=== PATIENT | female | born 1945 | race Caucasian/White ===

== ENCOUNTER 2022-10-01 05:38 | Day surgery (SDC) | payer MEDICARE, OTHER ==
[2022-09-27 10:18] LABS: BASOPHILS % (AUTO) 0.7 % (0-1); EOSINOPHILS # (AUTO) 0.8 X10'3 (0-0.9); EOSINOPHILS % (AUTO) 10.5 % (0-6); LYMPHOCYTES # (AUTO) 1.8 X10'3 (1.1-4.8); LYMPHOCYTES % (AUTO) 25.2 % (21-51); MEAN CORPUSCULAR HEMOGLOBIN 27.3 PG (27.0-31.0); MEAN CORPUSCULAR HGB CONC 32.6 g/dL (33.0-36.5); MEAN CORPUSCULAR VOLUME 83.7 FL (78-98); MEAN PLATELET VOLUME 7.1 FL (7.4-10.4); MONOCYTES # (AUTO) 0.6 X10'3 (0-0.9); MONOCYTES % (AUTO) 8.9 % (2-12); NEUTROPHILS # (AUTO) 3.9 X10'3 (1.8-7.7); NEUTROPHILS % (AUTO) 54.7 % (42-75); PRE OP HEMATOCRIT 35.7 % (35.0-45.0); PRE OP HEMOGLOBIN 11.6 g/dL (12.0-16.0); PRE OP PLATELET COUNT 277 X10'3 (140-440); RED BLOOD COUNT 4.26 X10'6 (4.20-5.60); RED CELL DISTRIBUTION WIDTH 16.2 % (11.5-14.5)
[2022-09-27 10:38] LABS: ALBUMIN 3.7 G/DL (3.4-5.0); ALKALINE PHOSPHATASE 72 IU/L (46-116); BLOOD UREA NITROGEN 36 MG/DL (7-18); BUN/CREATININE RATIO 27.9 (6.6-38.0); CALCIUM 9.5 MG/DL (8.5-10.1); CHLORIDE 108 MMOL/L (99-107); CREATININE 1.29 MG/DL (0.40-0.90); PRE OP ALT 33 U/L (30-65); PRE OP ANION GAP 9 (8-16); PRE OP AST 26 U/L (10-37); PRE OP BILIRUB, TOTAL 0.5 MG/DL (0.0-1.0); PRE OP GLUCOSE 148 MG/DL (70-104); PRE OP POTASSIUM 3.8 MMOL/L (3.4-5.1); PRE OP SODIUM 140 MMOL/L (135-145); TOTAL CARBON DIOXIDE 22.9 MMOL/L (24-32); TOTAL PROTEIN 7.5 G/DL (6.4-8.2); eGFR 40 ML/MIN
[2022-10-01] VITALS (9 sets, daily range): BP systolic 144–162; BP diastolic 57–99
[~2022-10-01] VITALS: Ht 165.1 cm; Wt 77.1 kg
[~2022-10-01 05:38] MED LIST: AMA1T PO; ASPI-1265 PO; CHOL20003; CYAN-51 PO; HYDR12.55 PO; INSU100I31 SQ; METF1000 PO; MULT-620 PO; ROSU10TA28; TELM40TA8 PO; ceFAZolin inj. 2,000 MG in dextrose 5%-water 100 ML IV ONE; ceFAZolin inj. 3,000 MG in normal saline 100ml IV soln 100 ML IV ONE; famotidine 20mg tablet PO ONE; ringers solution, lacted 1,000 ML IV SCH
[2022-10-01] MEDS ORDERED: proCHLORperazine 10 MG/2 ml inj IV PRN ×2 (07:20→08:10)
[2022-10-01] MEDS ORDERED: morphine 4 MG/ML inj SYRINge IV PRN ×2 (07:20→08:10)
[2022-10-01] MEDS ORDERED: hydrALAZINE 20mg/ml inj. IV PRN ×2 (07:20→08:10)
[2022-10-01] MEDS ORDERED: meperidine/PF 25mg/ml syringe IV PRN ×6 (07:20→08:10)
[2022-10-01] MEDS ORDERED: ringers solution, lacted 1,000 ML IV SCH ×2 (07:20→08:10)
[2022-10-01] MEDS ORDERED: acetaminophen 1,000mg/100ml IV 100 ML IV PRN ×2 (07:20→08:10)
[2022-10-01] MEDS ORDERED: labetalol 20mg/4ml (5mg/ml) syringe IV PRN ×2 (07:20→08:10)
[2022-10-01] MEDS ORDERED: ondansetron/PF 4mg/2ml inj IV PRN ×2 (07:20→08:10)
[2022-10-01] MEDS ORDERED: morphine 2 MG/ML inj. syringe IV PRN ×2 (07:20→08:10)
[2022-10-01] MEDS ORDERED: BUPIVAcaine/PF 5 mg/ml 10ml ONE (07:52)
[2022-10-01] MEDS ORDERED: fentaNYL/PF 50MCG/1 ML 2ML syringe ONE (07:56)
[2022-10-01] MEDS ORDERED: midazolam 1 mg/ML 2ml injection ONE (08:05)
[2022-10-01] MEDS ORDERED: propofol inj 20 ML IV ONE (08:26)
[2022-10-01] MEDS ORDERED: LIDOcaine 0.5% (5mg/ml) 50ml vial ONE (08:26)
--- NOTE | 2022-10-01 08:42 | NUR ---
Received from OR via [facility] IN STABLE CONDITION , accompanied by Anesthesiologist and TRACK SUPERINTENDENT report given by Anesthesiinocente AND TRACK SUPERINTENDENT. Addendum: 10/01/22 at 0914 by Muriel Lua RN Amended: Links added.
--- NOTE | 2022-10-01 09:42 | NUR ---
PATIENT DISCHARGED FROM PACU IN STABLE CONDITION AFTER WRITTEN AND VERBAL DISCHARGE INSTRUCTIONS GIVEN. PATIENT GAVE VERBAL UNDERSTANDING OF INSTRUCTIONS GIVEN. PATIENT LEFT FACILITY VIA WHEELCHAIR WITH VOLUNTEER. Addendum: 10/01/22 at 1006 by Muriel Lua RN Amended: Links added.
== END 2022-10-01 09:42 | disposition home or self-care (01) ==
LOC: PAS 05:38
PROVIDERS: ATTEND Orthopaedic Surgery Hand Surgery
DX: M70.22 Olecranon bursitis, left elbow (principal); M10.022 Idiopathic gout, left elbow; J44.9 Chronic obstructive pulmonary disease, unspecified; I10 Essential (primary) hypertension; E66.8 Other obesity; Z68.28 Body mass index [BMI] 28.0-28.9, adult; E78.5 Hyperlipidemia, unspecified; M19.072 Primary osteoarthritis, left ankle and foot; E11.69 Type 2 diabetes mellitus with other specified complication; K21.9 Gastro-esophageal reflux disease without esophagitis; E11.40 Type 2 diabetes mellitus with diabetic neuropathy, unspecified; Z98.890 Other specified postprocedural states; Z87.891 Personal history of nicotine dependence; Z72.89 Other problems related to lifestyle; Z79.899 Other long term (current) drug therapy; Z79.84 Long term (current) use of oral hypoglycemic drugs; Z79.82 Long term (current) use of aspirin; Z85.828 Personal history of other malignant neoplasm of skin
CPT/HCPCS: 24105; 36415; 80053; 82948; 85025; 93005; J0690; J2250; J2704; J3010; J3490; J7030; J7060; J7120; Z7506; Z7512; A4215; A4618; A6446; A6449; A7000